=== PATIENT | female | born 1930 | race Caucasian/White ===

== ENCOUNTER 2020-09-14 08:58 | Outpatient (CLI) | payer MEDICARE, BC ==
--- NOTE | 2020-09-14 10:54 | RAD ---
PA AND LATERAL VIEWS CHEST: Date: 09/14/2020 HISTORY: Dyspnea. FINDINGS/IMPRESSION: There are no previous exams for comparison. The heart size is normal. The aorta is tortuous. The lungs are expanded with prominent interstitial m arkings. No lobar consolidation, pneumothoraces, or pleural effusions are seen. 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 POS: OFF
== END 2020-09-14 08:59 | disposition home or self-care (01) ==
LOC: BICRAD 08:58
PROVIDERS: ATTEND Internal Medicine Pulmonary Disease
DX: R06.00 Dyspnea, unspecified (principal); Q25.46 Tortuous aortic arch; M47.819 Spondylosis without myelopathy or radiculopathy, site unspecified
CPT/HCPCS: 71046